=== PATIENT | male | born 2000 | race African-American/Black ===

== ENCOUNTER 2021-12-06 17:18 | Emergency (ER) | payer MEDICAID ==
[~2021-12-06] VITALS: Ht 172.7 cm; Wt 68.0 kg
[2021-12-06 17:21] VITALS: BP 114/75
[2021-12-06] MEDS ORDERED: LIDOCAINE HCL/PF 1% 10 MG/ML 5ML VIAL INFIL ONE (18:45)
[2021-12-06] MEDS ORDERED: BACITRACIN ZINC OINT UDPKT TOP ONE (18:45)
== END 2021-12-06 19:24 | disposition home or self-care (01) ==
LOC: ER 17:18
DX: S61.213A Laceration without foreign body of left middle finger without damage to nail, initial encounter (principal); S61.215A Laceration without foreign body of left ring finger without damage to nail, initial encounter; J45.909 Unspecified asthma, uncomplicated; W25.XXXA Contact with sharp glass, initial encounter; Y93.89 Activity, other specified; Y92.018 Other place in single-family (private) house as the place of occurrence of the external cause
CPT/HCPCS: 12002; 99283; J3490

== ENCOUNTER 2021-12-10 20:40 | Emergency (ER) | payer MEDICAID ==
[~2021-12-10] VITALS: Ht 172.7 cm; Wt 57.1 kg
[2021-12-10 21:32] VITALS: BP 108/77
[2021-12-11] MEDS ORDERED: BACITRACIN ZINC OINT UDPKT TOP NR (00:30)
[2021-12-11] MEDS ORDERED: BACITRACIN 15GM TUBE TOP ONE (00:30)
== END 2021-12-11 00:52 | disposition home or self-care (01) ==
LOC: ER 20:40
DX: S61.213D Laceration without foreign body of left middle finger without damage to nail, subsequent encounter (principal); X58.XXXD Exposure to other specified factors, subsequent encounter; J45.909 Unspecified asthma, uncomplicated
CPT/HCPCS: 99281

== ENCOUNTER 2021-12-23 12:06 | Emergency (ER) | payer MEDICAID, OTHER ==
[~2021-12-23] VITALS: Ht 172.7 cm; Wt 57.0 kg
[2021-12-23 12:20] VITALS: BP 115/79
== END 2021-12-23 14:33 | disposition home or self-care (01) ==
LOC: ER 14:25
DX: S61.213D Laceration without foreign body of left middle finger without damage to nail, subsequent encounter (principal); X58.XXXD Exposure to other specified factors, subsequent encounter; J45.909 Unspecified asthma, uncomplicated
CPT/HCPCS: 99281

== ENCOUNTER 2023-12-02 16:25 | Emergency (ER) | payer MEDICAID, OTHER ==
[~2023-12-02] VITALS: Ht 172.7 cm; Wt 65.0 kg
[2023-12-02 16:54] VITALS: BP 114/78; PULSE 83; RESP 16; TEMP 97.9; O2SAT 99
[2023-12-02] MEDS ORDERED: AMOX1TAB16 MT (17:48)
[2023-12-02] MEDS: TETANUS, DIPHTHERIA, PERTUSSIS VAC/PF 0.5ML (>10YR OLD) IM ONE (18:00)
== END 2023-12-02 18:08 | disposition home or self-care (01) ==
LOC: ER 16:25
DX: S50.812A Abrasion of left forearm, initial encounter (principal); J45.909 Unspecified asthma, uncomplicated; Z88.6 Allergy status to analgesic agent; W50.3XXA Accidental bite by another person, initial encounter; Y93.89 Activity, other specified; Y92.89 Other specified places as the place of occurrence of the external cause; Y99.8 Other external cause status
CPT/HCPCS: 90471; 90715; 99283

== ENCOUNTER 2024-04-05 11:03 | Emergency (ER) | payer OTHER ==
[~2024-04-05] VITALS: Ht 170.2 cm; Wt 73.0 kg
[~2024-04-05 11:03] MED LIST: AMOX1TAB16 MT
[2024-04-05 11:08] VITALS: BP 106/60; TEMP 98.7; O2SAT 100
[2024-04-05] MEDS ORDERED: DEXAMETHASONE 1MG TABLET PO ONE (11:45)
[2024-04-05] MEDS: IPRATROPIUM BROMIDE (0.02%) 0.5MG/2.5ML NEB HHN STA (12:21)
[2024-04-05] MEDS: ALBUTEROL (0.083%) 2.5MG/3ML NEB HHN SCH (12:21)
[2024-04-05 12:27] VITALS: PULSE 79; RESP 20
[2024-04-05] MEDS: DEXAMETHASONE 4MG TABLET PO NR (13:30)
== END 2024-04-05 14:06 | disposition home or self-care (01) ==
LOC: ER 11:18
DX: J45.901 Unspecified asthma with (acute) exacerbation (principal); Z79.52 Long term (current) use of systemic steroids
CPT/HCPCS: 71045; 94644; 99291; J8540; Z7610 ×2; 94640